=== PATIENT | female | born 1990 | race Caucasian/White ===

== ENCOUNTER 2017-09-21 06:13 | Emergency (ER) | payer BC, OTHER ==
[2017-09-21 06:31] VITALS: TEMP 97.2; BMI 25.8
--- NOTE | 2017-09-21 08:13 | PDOC ---
History of Present Illness <Fidelia Mitchell - Last Filed: 09/21/17 13:06> - History of Present Illness Initial Comments: 09/21/17 08:09 The patient is a 27 yo f w/ PMH asthma who comes into the ed c/o lower abdominal pain and BRBPR for the past 1 day. Patient states that she was woken up from sleep by a cramping lower abdominal pain accompanied by diarrhea. Patient states that the pain is 10/10 in intensity, is located primarily suprapubically, and is nonradating. The pain varies between a 5/10 and a 10/ 10. This pain became associated with NBNB vomiting x2 and a mucous diarrhea with bright red blood seen in the toilet bowl. Patient states that she had approximately 20 episodes of this bloody diarrhea since midnight. The patient expresses concern since her dog recently had similar symptoms. Patient denies fevers, chills, change in diet, chest pain, shortness of breath, sick contacts, previous episodes or family history of GI problems. 09/21/17 08:17 <Gualberto Goodwin - Last Filed: 09/21/17 13:14> - General Chief Complaint: Nausea/Vomiting Stated Complaint: STOMACH PAIN/VOMITING Time Seen by Provider: 09/21/17 07:32 Past History <Fidelia Mitchell - Last Filed: 09/21/17 13:06> - Past Medical History Asthma: Yes COPD: No - Suicide/Smoking/Psychosocial Hx Smoking History: Current every day smoker Have you smoked in the past 12 months: Yes Number of Cigarettes Smoked Daily: 10 Information on smoking cessation initiated: No Hx Alcohol Use: No Drug/Substance Use Hx: No <Gualberto Goodwin - Last Filed: 09/21/17 13:14> - Past Medical History Allergies/Adverse Reactions: Allergies Allergy/AdvReac Type Severity Reaction Status Date / Time No Known Allergies Allergy Verified 09/21/17 06:30 Home Medications: Ambulatory Orders Ethinyl Estradiol/Drospirenone [Ocella 3 mg-0.03 mg Tablet] 1 each PO DAILY Levofloxacin [Levaquin] 750 mg PO DAILY #10 tab 09/21/17 Metronidazole 500 mg PO TID #30 tablet 09/21/17 Montelukast Na [Singulair -] 5 mg PO DAILY 09/21/17 Review of Systems - Review of Systems Able to Perform ROS?: Yes Is the patient limited Bengali proficient: No Constitutional: Yes: Weakness. No: Chills, Fever Respiratory: No: Cough, Shortness of Breath Cardiac (ROS): No: Chest Pain, Lightheadedness, Palpitations ABD/GI: Yes: Abd. Pain w/ defecation, Blood Streaked Bowels, Diarrhea, Nausea, Vomiting : No: Burning, Dysuria, Frequency Musculoskeletal: No: Back Pain, Joint Pain Integumentary: No: Bruising, Erythema, Pallor Neurological: No: Headache, Numbness, Tingling <Gualberto Goodwin - Last Filed: 09/21/17 13:14> *Physical Exam - Vital Signs Last Vital Signs Temp Pulse Resp BP Pulse Ox 97.2 F L 89 18 131/78 99 09/21/17 06:30 09/21/17 07:50 09/21/17 07:50 09/21/17 07:50 09/21/17 07:50 <Fidelia Mitchell - Last Filed: 09/21/17 13:06> - Vital Signs Last Vital Signs Temp Pulse Resp BP Pulse Ox 97.2 F L 89 18 131/78 99 09/21/17 06:30 09/21/17 07:50 09/21/17 07:50 09/21/17 07:50 09/21/17 07:50 - Physical Exam General Appearance: Yes: Appropriately Dressed, Mild Distress HEENT: negative: Pale Conjunctivae Neck: positive: Trachea midline Respiratory/Chest: positive: Lungs Clear, Normal Breath Sounds. negative: Chest Tender, Respiratory Distress, Accessory Muscle Use Cardiovascular: positive: Regular Rhythm, Regular Rate, S1, S2. negative: Edema , JVD, Murmur, Gallop/S3, Gallop/S4 Gastrointestinal/Abdominal: positive: Tender (tenderness to palpation across the whole abdomen, worst in the center of the lower abdomen), Flat, Soft, Increased Bowel Sounds. negative: Distended, Guarding Musculoskeletal: positive: Normal Inspection. negative: CVA Tenderness Integumentary: positive: Normal Color, Dry, Warm Neurologic: positive: Fully Oriented, Alert, Normal Mood/Affect, Normal Response <Gualberto Goodwin - Last Filed: 09/21/17 13:14> ED Treatment Course - LABORATORY CBC & Chemistry Diagram: 09/21/17 09:00 09/21/17 09:00 - ADDITIONAL ORDERS Additional order review: Laboratory Results 09/21/17 09/21/17 09/21/17 10:14 09:16 09:00 Sodium 138 Potassium 4.2 Chloride 106 Carbon Dioxide 22 Anion Gap 10 BUN 15 Creatinine 0.7 Creat Clearance w eGFR > 60 Random Glucose 114 H Calcium 9.1 Total Bilirubin 0.3 AST 15 ALT 16 Alkaline Phosphatase 61 C-Reactive Protein 0.7 H Total Protein 7.5 Albumin 3.7 Total Amylase 50 Lipase 118 Urine Color Yellow Urine Appearance Clear Urine pH 5.0 Ur Specific Boss 1.032 Urine Protein Negative Urine Glucose (UA) Negative Urine Ketones Negative Urine Blood Negative Urine Nitrite Negative Urine Bilirubin Negative Urine Urobilinogen Negative Urine HCG, Qual Negative Stool Occult Blood Negative 09/21/17 09:00 RBC 4.52 MCV 85.8 MCHC 32.9 RDW 13.2 MPV 8.2 Neutrophils % 83.6 H Lymphocytes % 12.7 Monocytes % 2.9 L Eosinophils % 0.3 Basophils % 0.5 - RADIOLOGY Radiology Studies Ordered: Category Date Time Status ABDOMEN & PELVIS CT WITH CONTR [CT] Stat CT Scan 09/21/17 10:20 Completed - Medications Given in the ED: ED Medications Discontinued Medications Generic Name Dose Route Start Last Admin Trade Name Cristin PRN Reason Stop Dose Admin Acetaminophen 1,000 mg 09/21/17 09:02 09/21/17 09:15 Ofirmev Injection - IVPB 09/21/17 09:03 1,000 mg ONCE ONE Administration Sodium Chloride 1,000 mls @ 1,000 mls/hr 09/21/17 09:02 09/21/17 09:15 Normal Saline - IV 09/21/17 10:01 1,000 mls/hr ASDIR STA Administration <Fidelia Mitchell - Last Filed: 09/21/17 13:06> - LABORATORY CBC & Chemistry Diagram: 09/21/17 09:00 09/21/17 09:00 <Gualberto Goodwin - Last Filed: 09/21/17 13:14> Medical Decision Making - Medical Decision Making 09/21/17 08:39 The patient is a 27 yo f w/ PMH asthma comes into the ed c/o cramping lower abdominal pain, nausea, vomiting and bloody diarrhea for the past day. Patient has no fever, -cbc, cmp -ESR, CRP -lipase -stool for occult blood, WBC, ova and parasites -UA, urine c&s, upreg -IV tylenol -1L bolus NS 09/21/17 09:19 -will consider CT if blood tests inconclusive 09/21/17 10:34 -CBC shows elevated WBC count. -patient improved after IV tylenol and NS bolus -UA WNL -Upreg negative -will perform CT abd pelvis w/ contrast to assess for colitis. <Gualberto Goodwin - Last Filed: 09/21/17 13:14> *DC/Admit/Observation/Transfer - Discharge Dispostion Admit: No <Fidelia Mitchell - Last Filed: 09/21/17 13:06> - Discharge Dispostion Admit: No <Gualberto Goodwin - Last Filed: 09/21/17 13:14> Diagnosis at time of Disposition: Colitis - Discharge Dispostion Disposition: HOME Condition at time of disposition: Improved - Prescriptions Prescriptions: Levofloxacin [Levaquin] 750 mg PO DAILY #10 tab Metronidazole 500 mg PO TID #30 tablet - Patient Instructions Printed Discharge Instructions: DI for Colitis Additional Instructions: You should follow up with your primary care physician within 1-2 days of discharge. We are sending two antibiotics to your pharmacy. Please take these medications as prescribed for the daytime caregiver that you are prescribed them, even if you feel better. If you begin to experience worsening abdominal pain, worsening diarrhea, worsening nausea or vomiting or if any of your symptoms get worse, please call your doctor or return to the Emergency department.
[2017-09-21] MEDS ORDERED: SODIUM CHLORIDE 1,000 ML IV STA (09:02)
[2017-09-21] MEDS ORDERED: ACETAMINOPHEN 1000 MG/100 ML VIAL (NON FORMULARY) IVPB ONE (09:02)
[2017-09-21] MEDS ORDERED: ACETAMINOPHEN INJECTION 100 ML IVPB ONE (09:08)
--- NOTE | 2017-09-21 09:08 | PDOC ---
Attending Attestation - Resident Resident Name: Gualberto Goodwin - ED Attending Attestation I have performed the following: I have examined & evaluated the patient, The case was reviewed & discussed with the resident, I agree w/resident's findings & plan, Exceptions are as noted - HPI HPI: 27 yo F no significant PMH presents with crampy abdominal pain, nausea, vomiting , and bloody diarrhea since last night. She denies any recent travel, no unusual food intake. She notes that her dog is currently ill with similar symptoms. Her boyfriend is asymptomatic, and they have eaten all the same things. No fever, chills. No prior similar symptoms. No history of inflammatory bowel disease. - Physicial Exam PE: GENERAL: Awake, alert, and fully oriented, in no acute distress. Nontoxic. HEAD: No signs of trauma EYES: PERRLA, EOMI, sclera anicteric, conjunctiva clear ENT: Auricles normal inspection, hearing grossly normal, nares patent, oropharynx clear without exudates. Dry mucosa NECK: Normal ROM, supple, no lymphadenopathy, JVD, or masses LUNGS: Breath sounds equal, clear to auscultation bilaterally. No wheezes, and no crackles HEART: Regular rate and rhythm, normal S1 and S2, no murmurs, rubs or gallops ABDOMEN: Soft, diffusely tender with guarding, no rebound. Normoactive bowel sounds. No masses EXTREMITIES: Normal range of motion, no edema. No clubbing or cyanosis. No cords, erythema, or tenderness NEUROLOGICAL: Cranial nerves II through XII grossly intact. Normal speech, normal gait SKIN: Warm, Dry, normal turgor, no rashes or lesions noted. - Medical Decision Making Pt with 1 day history of multiple episodes of bloody diarrhea. Will send stool for ova and parasites given the severity of the symptoms. Labs, analgesics, IVFs. CT r/o colitis.
[2017-09-21 09:10] LABS: BASOPHIL 0.5 % (0-2.0); EOSINOPHIL 0.3 % (0-4.5); MCH 28.2 pg (25.7-33.7); MCHC 32.9 g/dl (32.0-36.0); MEAN CELL VOLUME 85.8 fl (80-96); MEAN PLT VOLUME 8.2 fl (7.5-11.1); NEUTROPHILS 83.6 % (42.8-82.8); PLATELET COUNT 331 K/MM3 (134-434); RDW 13.2 % (11.6-15.6); WHITE BLOOD COUNT 13.2 K/mm3 (4.0-10.0)
[2017-09-21 09:39] LABS: ALBUMIN 3.7 g/dl (3.4-5.0); ANION GAP 10 (8-16); CALCIUM 9.1 mg/dL (8.5-10.1); CO2 22 mmol/L (21-32); CREATININE 0.7 mg/dL (0.55-1.02); GLUCOSE,RANDOM 114 mg/dL (74-106)
[2017-09-21 09:42] LABS: URINE APPEARANCE CLEAR; URINE BILIRUBIN NEGATIVE (NEGATIVE); URINE BLOOD NEGATIVE (NEGATIVE); URINE COLOR YELLOW; URINE GLUCOSE (UA) NEGATIVE (NEGATIVE); URINE KETONE NEGATIVE (NEGATIVE); URINE NITRITE NEGATIVE (NEGATIVE); URINE PROTEIN NEGATIVE (NEGATIVE); URINE UROBILINOGEN NEGATIVE mg/dL (0.2-1.0)
[2017-09-21 09:48] LABS: ALK PHOS 61 U/L (45-117); AMYLASE 50 U/L (25-115); BILIRUBIN,TOTAL 0.3 mg/dL (0.2-1.0); C-REACTIVE PROTEIN 0.7 MG/DL (0.00-0.3); SGOT/AST 15 U/L (15-37); SGPT/ALT 16 U/L (12-78); TOT PROT 7.5 g/dl (6.4-8.2)
[2017-09-21 10:33] LABS: ERYTHROCYTE SEDIMENTATION RATE 13 mm/hr (0-20)
[2017-09-21] MEDS ORDERED: metroNIDAZOLE 250 MG TABLET PO ONE (13:05)
[2017-09-21] MEDS ORDERED: LEVOFLOXACIN 750 MG TABLET PO ONE (13:06)
[2017-09-21] MEDS ORDERED: metroNIDAZOLE 250 MG TABLET ONE (13:17)
[2017-09-21] MEDS ORDERED: LEVOFLOXACIN 250 MG TABLET (FP) ONE (13:18)
[2017-09-21] MEDS ORDERED: LEVOFLOXACIN 500 MG TABLET (FP) ONE (13:18)
[2017-09-21 13:35] VITALS: BP 127/67; PULSE 85
[2017-09-21 17:00] LABS: URINE LEUK ESTERASE Negative (NEGATIVE)
== END 2017-09-21 13:35 | disposition home or self-care (01) ==
LOC: JER 06:13
PROC: 3E033NZ Introduction of Analgesics, Hypnotics, Sedatives into Peripheral Vein, Percutaneous Approach (ICD-10-PCS; principal; 2017-09-21)
DX: K52.9 Noninfective gastroenteritis and colitis, unspecified (principal); J45.909 Unspecified asthma, uncomplicated; F17.210 Nicotine dependence, cigarettes, uncomplicated
CPT/HCPCS: 36415; 74177-TC; 80053; 81003; 82150; 82272; 83690; 84703; 85025; 85651; 86140; 87045; 87046; 87086; 87205; 99284-25

== ENCOUNTER 2019-05-26 22:20 | Emergency (ER) | payer OTHER ==
--- NOTE | 2019-05-26 22:26 | PDOC ---
History of Present Illness - General Chief Complaint: Psychiatric Stated Complaint: ANXIETY Time Seen by Provider: 05/26/19 22:26 - History of Present Illness Initial Comments: 05/26/19 23:19 This 29-year-old woman with a history of asthma presents with 2 day history of intermittent sensation of her throat closing along with "waves" of anxiety. She has not had any lip/tongue swelling, wheezing, cough or upper respiratory symptoms. Of note, the patient had been taking 0.5-1 mg of alprazolam daily for the last 10 days. The patient states that she had been taking the medication, mainly in the evenings ("recreationally"). She states that she had not been prescribed the medication but obtained it from a friend. She decided to stop taking alprazolam a few days ago and did not take any yesterday; she states that she felt the throat closing sensation and anxiety mildly yesterday. Tonight, sensation was much more severe and she took 0.5 mg of alprazolam a few hours prior to presentation. She admits researching alprazolam withdrawal on the Internet and presents to the ER extremely concerned that she is experiencing life-threatening benzodiazepine withdrawal. She adamantly denies using any other drugs currently or using alprazolam at a higher dose or for longer period of time. Last acute asthma attack was in November associated with acute bronchitis No history of panic disorder or acute anxiety episodes. Patient is no longer smoking cigarettes for the last few months; she has been using e-cigarettes with nicotine. She does not think she has been using the E- cigarettes more frequently recently. She denies excessive caffeine ingestion, stating that she drinks approximately 1 cup of coffee daily. No significant alcohol use No known ALLERGIES Past History - Past Medical History Allergies/Adverse Reactions: Allergies Allergy/AdvReac Type Severity Reaction Status Date / Time No Known Allergies Allergy Verified 09/21/17 06:30 Home Medications: Ambulatory Orders Ethinyl Estradiol/Drospirenone [Ocella 3 mg-0.03 mg Tablet] 1 each PO DAILY Montelukast Na [Singulair -] 5 mg PO DAILY 09/21/17 Alprazolam [Xanax] 1 mg PO DAILY 05/26/19 Mometasone Furoate [Asmanex] 0.135 gm IH PRN PRN 05/26/19 Asthma: Yes COPD: No - Suicide/Smoking/Psychosocial Hx Smoking History: Current every day smoker Have you smoked in the past 12 months: Yes Number of Cigarettes Smoked Daily: 10 Hx Alcohol Use: No Drug/Substance Use Hx: No Review of Systems - Review of Systems Able to Perform ROS?: Yes Comments:: 12 point review of systems is negative except for what is noted in the history of present illness *Physical Exam - Physical Exam Comments: GENERAL: Adult female, alert and oriented 3, anxious but in no acute respiratory distress HEAD: Normal with no signs of trauma. EYES: PERRLA, EOMI, sclera anicteric, conjunctiva clear. ENT: Ears normal, nares patent, oropharynx clear without exudates. Dry mucous membranes. NECK: Normal range of motion, supple without lymphadenopathy, JVD, or masses. LUNGS: Breath sounds equal, clear to auscultation bilaterally. No wheezes, and no crackles. HEART:Regular rate and rhythm, normal S1 and S2 without murmur, rub or gallop. ABDOMEN:.normal bowel sounds No guarding,tenderness or rebound.No masses No distention. EXTREMITIES: Normal range of motion, no edema. No clubbing or cyanosis. No erythema, or tenderness. NEUROLOGICAL: Cranial nerves II through XII grossly intact. Normal speech. Motor/sensory functioning grossly intact No focal neurological deficits MUSCULOSKELETAL: Back non-tender to palpation, no CVA tenderness SKIN: Warm, Dry, normal turgor, no rashes or lesions noted. Medical Decision Making - Medical Decision Making This 29-year-old woman with a history of asthma but no other serious medical issues presents with intermittent "throat closing" sensation in the last 2 days. This began after the patient decided to stop taking daily alprazolam. She states that she had been taking this medication on her own, obtaining the tablets from "a friend" but only for the last 10 days. She adamantly denies using any other nonprescribed medications on a recreational basis. She had researched benzodiazepine withdrawal on the Internet and is extremely concerned that she will have a seizure or other serious consequences of withdrawal. Other than her hyperdynamic vital signs, exam is normal. Patient was reassured that her airway is open with excellent air exchange and the remainder of her exam is normal. Also, it was discussed that the likelihood that life-threatening benzodiazepine withdrawal would occur tonight after only 10 days of daily use is very small, especially since she admits taking 0.5mg earlier this evening. Importance of following up with a physician to discuss issues of anxiety/ depression was emphasized. The patient states that she has a good relationship with her staff certified nurse midwife and will follow-up with her in the near future. She became tearful when discussing whether she has underlying depression that has not been addressed, but stated that she was very reassured that her health was not immediately in jeopardy. Repeat vital signs were much improved with heart rate of 76/minute and that pressure 119/79 She should return to the ER if she has persistent wheezing/shortness of breath/ palpitations/chest pain. She should avoid stimulants such as excessive caffeine /nicotine. *DC/Admit/Observation/Transfer Diagnosis at time of Disposition: Acute anxiety - Discharge Dispostion Disposition: HOME Condition at time of disposition: Stable - Referrals - Patient Instructions Printed Discharge Instructions: DI for Panic Disorder Additional Instructions: followup with your doctor(staff certified nurse midwife) within the next 4-5 days(call tomorrow to arrange appointment) continue your medications as prescribed drink plenty of fluids /get regular exercise limit caffeine/nicotine exposure as discussed return to ER if you experience wheezing/shortness of breath/palpitations/chest pain - Post Discharge Activity
[2019-05-26 22:30] VITALS: TEMP 99; BMI 26.6
[2019-05-26 23:16] VITALS: BP 119/79; PULSE 76
== END 2019-05-26 23:19 | disposition home or self-care (01) ==
LOC: FER 22:20
DX: F41.9 Anxiety disorder, unspecified (principal); F17.210 Nicotine dependence, cigarettes, uncomplicated
CPT/HCPCS: 99281-25

== ENCOUNTER 2022-04-01 07:40 | Inpatient (IN) | payer OTHER ==
[2022-04-01 08:59] VITALS: BMI 34.7
[2022-04-01] MEDS ORDERED: BUTORPHANOL TARTRATE 1 MG/ML VIAL IVPB ONE (09:37)
[2022-04-01] MEDS ORDERED: PROMETHAZINE HCL 25 MG/1 ML VIAL IVPUSH ONE (09:37)
[2022-04-01] MEDS ORDERED: ELECTROLYTE-148 SOLN 1,000 ML IV SCH (09:45)
[2022-04-01] MEDS ORDERED: OXYTOCIN 30 UNITS in 0.9% NS 30 UNIT/500 ML INFUS.BAG IVPB SCH (10:15)
[2022-04-01] MEDS ORDERED: BUTORPHANOL TARTRATE 2 MG/ML VIAL ONE (10:35)
[2022-04-01] MEDS ORDERED: PROMETHAZINE HCL 25 MG/1 ML VIAL ONE (10:35)
[2022-04-01 11:25] LABS: BASO % 0.4 % (0-2.0); EOS % 1.3 % (0-4.5); HEMATOCRIT 34.3 % (32.4-45.2); HEMOGLOBIN 11.4 GM/dL (10.7-15.3); LYMPH % 20.7 % (8-40); MCH 28.6 pg (25.7-33.7); MCHC 33.3 g/dl (32.0-36.0); MEAN CELL VOLUME 85.8 fl (80-96); MEAN PLT VOLUME 9.7 fl (7.5-11.1); MONO % 8.4 % (3.8-10.2); NEUT % 69.2 % (42.8-82.8); PLATELET COUNT 302 10^3/uL (134-434); RBC 3.99 M/mm3 (3.60-5.2); RDW 14.5 % (11.6-15.6); WHITE BLOOD COUNT 10.8 K/mm3 (4.0-10.0)
[2022-04-01 11:29] LABS: INR 0.93 (0.83-1.09); PROTHROMBIN TIME (PATIENT) 10.7 SEC (9.7-13.0)
[2022-04-01 11:32] LABS: ACTIVATED PTT 26.1 SECONDS (25.2-36.5)
[2022-04-01 11:47] LABS: BLOOD UREA NITROGEN 10.3 mg/dL (7-18); CALCIUM 8.7 mg/dL (8.5-10.1)
[2022-04-01 11:51] LABS: CREATININE 0.6 mg/dL (0.55-1.3)
[2022-04-01] MEDS ORDERED: FENTANYL/BUPIVACAINE/NS/PF - PCEA - 50 ML DISP.SYRIN EP ONE ×3 (13:00→21:59)
[2022-04-01] MEDS ORDERED: NALOXONE HCL 0.4 MG/ML VIAL IVPUSH PRN (13:23)
[2022-04-01] MEDS ORDERED: FENTANYL/BUPIVACAINE/NS/PF - PCEA - 50 ML DISP.SYRIN EP SCH (13:30)
[2022-04-01] MEDS: FENTANYL/BUPIVACAINE/NS/PF - PCEA - 50 ML DISP.SYRIN EP SCH ×2 (18:00→22:00)
[2022-04-01] MEDS ORDERED: OXYTOCIN 20 UNITS in 0.9% NS 20 UNIT/1,000 ML INFUS.BAG IV ONE (21:18)
[2022-04-02 00:27] LABS: CORD pH 7.33 (7.14-7.44)
[2022-04-02 00:27] LABS: CORD BASE EXCESS -5.7 mmol/L (0-2); CORD HCO3 20.3 mmHg (20-29); CORD PCO2 41.5 mmHg (30-78); CORD pH 7.307 (7.14-7.44)
[2022-04-02 00:28] LABS: CORD BASE EXCESS -3.8 mmol/L (0-2); CORD HCO3 22.1 mmHg (20-29); CORD PCO2 42.9 mmHg (30-78)
[2022-04-02] MEDS ORDERED: BENZOCAINE 20% 57 GM BOTTLE TP PRN (00:49)
[2022-04-02] MEDS ORDERED: BISACODYL 10 MG SUPP.RECT RC PRN (00:49)
[2022-04-02] MEDS ORDERED: WITCH HAZEL 50% (TUCKS) 40 PAD/JAR PAD TP PRN (00:49)
[2022-04-02] MEDS ORDERED: BENZOCAINE 28 GM HEMORRHOIDAL OINTMENT TP PRN (00:49)
[2022-04-02] MEDS ORDERED: METHYLERGONOVINE MALEATE 0.2 MG/1 ML AMP IM PRN (00:49)
[2022-04-02] MEDS ORDERED: ACETAMINOPHEN 325 MG TABLET (FP) PO PRN (00:49)
[2022-04-02] MEDS ORDERED: OXYTOCIN 20 UNITS in 0.9% NS 20 UNIT/1,000 ML INFUS.BAG IV SCH (01:00)
[2022-04-02] MEDS: IBUPROFEN 600 MG TABLET (FP) PO PRN ×2 (09:36→20:24)
[2022-04-02 12:00] LABS: POC NITRAZINE POS
[2022-04-03] MEDS: IBUPROFEN 600 MG TABLET (FP) PO PRN ×2 (06:38→11:42)
[2022-04-03 10:06] LABS: BASO % 0.4 % (0-2.0); EOS % 0.9 % (0-4.5); HEMATOCRIT 32.3 % (32.4-45.2); HEMOGLOBIN 10.6 GM/dL (10.7-15.3); LYMPH % 16.5 % (8-40); MCH 28.4 pg (25.7-33.7); MCHC 32.8 g/dl (32.0-36.0); MEAN CELL VOLUME 86.6 fl (80-96); MEAN PLT VOLUME 9.5 fl (7.5-11.1); MONO % 5.4 % (3.8-10.2); NEUT % 76.8 % (42.8-82.8); PLATELET COUNT 302 10^3/uL (134-434); RBC 3.74 M/mm3 (3.60-5.2); RDW 14.8 % (11.6-15.6); WHITE BLOOD COUNT 12.5 K/mm3 (4.0-10.0)
[2022-04-03 13:09] VITALS: BP 136/81; PULSE 103; TEMP 98.5
[2022-04-03] MEDS ORDERED: SENNOSIDES/DOCUSATE COMBO (SENNA PLUS) TABLET (UD) PO PRN (22:00)
== END 2022-04-03 14:40 | disposition home or self-care (01) | DRG 807 ==
LOC: JLDR 07:40 → J3W 04-02 02:16
PROVIDERS: ADMIT Obstetrics & Gynecology; ATTEND Obstetrics & Gynecology
PROC: 10E0XZZ Delivery of Products of Conception, External Approach (ICD-10-PCS; principal; 2022-04-01)
DX: O80 Encounter for full-term uncomplicated delivery (principal); Z37.0 Single live birth; Z3A.39 39 weeks gestation of pregnancy
CPT/HCPCS: 36415; 36600; 59409; 80048; 82803; 83986-QW; 85025; 85610; 85730; 86780; 86850; 86900; 86901; C9803-CS; U0003; U0005